=== PATIENT | male | born 1950 | race Caucasian/White ===

== ENCOUNTER 2018-03-13 12:15 | Inpatient (IN) | payer OTHER ==
[~2018-03-13] VITALS: Ht 162.6 cm; Wt 77.1 kg
[2018-03-13] MEDS ORDERED: COZAAR25 MG PO (14:04)
[2018-03-13] MEDS ORDERED: ATORVASTATIN CA80 MG PO (14:05)
[2018-03-13] MEDS ORDERED: GABAPENTIN800 MG PO (14:05)
[2018-03-19] MEDS ORDERED: DOCUSATE SODIU100 MG PO (09:36)
[2018-03-19] MEDS ORDERED: CLONAZEPAM1 MG PO (09:37)
[2018-03-19] MEDS ORDERED: PERCOCET 5-3251 EACH PO (09:37)
== END 2018-03-19 15:32 | disposition home or self-care (01) | DRG 454 ==
LOC: PED 03-18 04:30 → O/R 03-18 04:30 → SURH 03-18 07:00 → PED 03-18 13:30
PROVIDERS: Orthopaedic Surgery Orthopaedic Surgery of the Spine
PROC: 0RG2071 Fusion of 2 or more Cervical Vertebral Joints with Autologous Tissue Substitute, Posterior Approach, Posterior Column, Open Approach (ICD-10-PCS; 2018-03-18)
PROC: 0RT30ZZ Resection of Cervical Vertebral Disc, Open Approach (ICD-10-PCS; 2018-03-18)
PROC: 07DS3ZZ Extraction of Vertebral Bone Marrow, Percutaneous Approach (ICD-10-PCS; 2018-03-18)
PROC: 0RG20A0 Fusion of 2 or more Cervical Vertebral Joints with Interbody Fusion Device, Anterior Approach, Anterior Column, Open Approach (ICD-10-PCS; principal; 2018-03-18 07:00)
DX: M50.01 Cervical disc disorder with myelopathy, high cervical region (principal); M47.12 Other spondylosis with myelopathy, cervical region; I10 Essential (primary) hypertension